=== PATIENT | male | born 1960 | race Caucasian/White ===

== ENCOUNTER 2019-02-17 22:21 | Inpatient (IN) ==
[2019-02-17] MEDS ORDERED: ASPIRIN PO ONE (22:34)
[2019-02-17] MEDS ORDERED: ASPIRIN PR ONE (22:34)
[2019-02-17] MEDS ORDERED: ASPIRIN ONE (22:43)
[2019-02-17 23:12] LABS: BASO# 0.08 X1000 (0.0-0.2); BASO% 0.9 % (0.0-0.8); EOS# 0.51 X1000 (0.0-0.7); EOS% 5.6 % (0.0-10.0); HEMATOCRIT 42.1 % (42.0-52.0); HEMOGLOBIN 13.7 g/dL (14.0-18.0); LYMPH# 2.36 X1000 (1.2-3.4); LYMPH% 26.1 % (20.5-51.1); MCH 29.8 PG (27-31); MCHC 32.5 g/dL (33-37); MCV 91.5 FL (81-99); MONO# 0.72 X1000 (0.11-0.59); MPV 10.2 FL (7.4-10.4); NEUT# 5.37 X1000 (1.4-6.5); NEUT% 59.4 % (42.2-75.2); PLT 307 X1000 (130-400); RDW 12.6 % (11.5-14.5); WBC 9.04 X1000 (4.8-10.8)
[2019-02-17] MEDS ORDERED: NS 1,000 ML IV ONE (23:13)
[2019-02-17] MEDS ORDERED: NITROGLYCERIN ONE (23:18)
[2019-02-17 23:19] LABS: PROTIME 13.3 Seconds (11.0-16.0)
[2019-02-17 23:20] LABS: PTT 30.4 Seconds (22.3-41.8)
[2019-02-17] MEDS ORDERED: NITROGLYCERIN SL ONE (23:25)
[2019-02-17 23:39] LABS: AGAP 13; ALB/GLOB RATIO 1.6; ALBUMIN 4.7 g/dL (3.5-5.0); ALKALINE PHOSPHATASE 94 U/L (32-122); BUN 17 mg/dL (8-22); CALCIUM 8.8 mg/dL (8.8-10.2); CHLORIDE 101 mmol/L (98-107); COSMO 280; CREATININE 1.1 mg/dL (0.7-1.2); ESTIMATED GFR > 60; GLUCOSE 88 mg/dL (70-104); GOT 31 U/L (10-34); GPT 20 U/L (10-44); POTASSIUM 3.9 mmol/L (3.5-5.1); SODIUM 140 mmol/L (136-145); TCO2 26 mmol/L (25-35); TOTAL BILIRUBIN 0.34 mg/dL (0.20-1.00); TOTAL PROTEIN 7.6 g/dL (6.3-8.3)
[2019-02-17 23:44] LABS: CK PROFILE 367 U/L (24-204)
--- NOTE | 2019-02-17 23:47 | EKG Report ---
Test Performed on : 02/17/2019 10:29:31 PM Test Reason : cp Blood Pressure : / mmHG Vent. Rate : 081 BPM Atrial Rate : 081 BPM P-R Int : 178 ms QRS Dur : 098 ms QT Int : 396 ms P-R-T Axes : 046 -43 036 degrees QTc Int : 460 ms Normal sinus rhythm. Left axis deviation Pulmonary disease pattern Abnormal ECG No previous ECGs available Unconfirmed Result
[2019-02-18 00:14] LABS: CK INDEX 1.5 (0.0-2.5); CK-MB 5.44 ng/mL (0.0-5.0)
[2019-02-18] MEDS ORDERED: MORPHINE IV ONE ×2 (00:15→11:36)
[2019-02-18] MEDS ORDERED: ZOFRAN IV ONE (00:38)
--- NOTE | 2019-02-18 01:38 | EKG Report ---
Test Performed on : 02/18/2019 00:55:14 AM Test Reason : chest pain Blood Pressure : / mmHG Vent. Rate : 061 BPM Atrial Rate : 061 BPM P-R Int : 198 ms QRS Dur : 090 ms QT Int : 442 ms P-R-T Axes : 032 -32 -04 degrees QTc Int : 444 ms Normal sinus rhythm. Left axis deviation Abnormal ECG When compared with ECG of 17-FEB-2019 22:29, (Unconfirmed) Non-specific change in ST segment in Inferior leads Inverted T waves have replaced nonspecific T wave abnormality in Inferior leads Unconfirmed Result
[2019-02-18 02:21] LABS: CK INDEX 1.5 (0.0-2.5); CK-MB 4.38 ng/mL (0.0-5.0)
--- NOTE | 2019-02-18 02:45 | PROVIDER DOCUMENTATION ---
This chart was entered by Glenn Call Scribe, acting as scribe for Abram Maier DO. HPI-Chest Pain - General Chief Complaint: Chest Pain Stated Complaint: CHEST PAIN Time Seen by Provider: 02/17/19 22:51 Source: patient Allergies/Adverse Reactions: Patient Allergies Allergy/AdvReac Type Severity Reaction Status Date / Time No Known Allergies Allergy Verified 02/17/19 22:57 Home Medications: Home Medication List Medication Instructions Recorded Confirmed Last Taken Type ATORVAstatin [Lipitor] 40 mg PO DAILY 02/17/19 02/17/19 Unknown History Gabapentin 200 mg PO DAILY 02/17/19 02/17/19 Unknown History Omeprazole [Prilosec] 20 mg PO DAILY 02/17/19 02/17/19 Unknown History - History of Present Illness-CP Nature of Presenting Problem: 58 yom presents to the ed with c/o Chest pains . pt stated onset chest pains stated 2 hours ago. pt states " had real bad chest pains that radiates to LT arm, neck, jaw and made my fingers numb." pt stated " starting to feel dizzy and vomited once." pt states " feels like someone is standing on my chest." pt states " felt like i was going to pass out at one point." Location: reports: substernal Chest Pain Radiation: reports: jaw (LT), arms (LT with fingers going numb), neck (LT) Quality of Pain: reports: aching Severity in ED: mild Onset/Duration: 1-3 hours ago Timing: still present Context/Activities at Onset: reports: none Modifying Factors: improves with: nothing Associated Symptoms: reports: dizziness, nausea, vomiting. denies: abdominal pain, fever/chills, rash, shortness of breath Nitro Today/Relief: no nitro taken today Aspirin Treatment Today: provided by ED Prior Chest Pain/Cardiac Workup: reports: no prior chest pain Similar Symptoms Previously?: No Recently Seen Here or By Another Healthcare Provider: No Review of Systems - Adult - REVIEW OF SYSTEMS - ADULT Constitutional: denies: chills, fever Eyes: reports: no symptoms reported Ears, Nose, Mouth & Throat: reports: no symptoms reported Cardiovascular: reports: see HPI, chest pain. denies: heart murmur, irregular heart rate Respiratory: denies: shortness of breath, wheezing Gastrointestinal: reports: see HPI, nausea, vomiting. denies: abdominal pain, constipation, diarrhea Genitourinary: reports: no symptoms reported Musculoskeletal: reports: see HPI, neck pain. denies: back pain, joint pain Integumentary: reports: no symptoms reported Neurological: reports: see HPI, dizziness/vertigo, numbness. denies: headach e/migraines, slurred speech, syncope Psychiatric: reports: no symptoms reported Endocrine: reports: no symptoms reported Hematologic/Lymphatic: reports: no symptoms reported Allergic/Immunologic: reports: no symptoms reported All Other Systems: Reviewed and Negative Past History - Adult - PAST MEDICAL HISTORY-ADULT Review of Records: reports: Old Records Reviewed, Nursing Assessment Review, Medications Reviewed, Social history reviewed & non-contributory. Major Childhood Illnesses: reports: denies history Cardiovascular: reports: denies history Respiratory: reports: denies history Gastrointestinal: reports: denies history Obstetrical/Gynecological: reports: denies history Genitourinary: reports: denies history Musculoskeletal: reports: denies history Neurological: reports: denies history Endocrine/Immune: reports: denies history Other Conditions: reports: denies history - PRIOR SURGERIES/PROCEDURES Surgical/Procedure History: reports: back/neck (back) - IMMUNIZATION STATUS Childhood Immunizations: See Nurse Assessment Flu Vaccine: See Nurse Assessment - FAMILY HISTORY Family History: reviewed, not pertinent - SOCIAL HISTORY Smoking: cigarettes (few a week), less than 1 pack/day Living Situation: alone Physical Exam-General - PHYSICAL EXAM-ADULT Initial Vital Signs Reviewed: Yes - CONSTITUTIONAL General Appearance: appears well, alert, mild distress. negative: lethargic, slow to respond - EYES Eyes: PERRL/EOMI - HEAD, EARS, NOSE, MOUTH & THROAT HENMT: moist mucous membranes, normal ENT inspection, TMs normal - NECK Neck: non-tender, full range of motion, supple, normal inspection - RESPIRATORY Respiratory: chest non-tender, lungs clear, normal breath sounds, no pleuratic chest pain, no respiratory distress, no accessory muscle use - CARDIOVASCULAR Cardiovascular: normal peripheral pulses, regular rate, rhythm, no edema, no gallop, no murmur - GASTROINTESTINAL (ABDOMEN) Abdominal Exam: normal bowel sounds, non tender, soft, no organomegaly, no pulsatile mass - GENITOURINARY Male Genitalia: deferred Rectal Exam: deferred Hemoccult Exam: deferred - MUSCULOSKELETAL Back Exam: normal inspection, no CVA tenderness Extremity: normal range of motion, normal gait - SKIN Integumentary: normal color, normal turgor, warm/dry - NEUROLOGIC Neurologic: grossly normal, no motor/sensory deficits - PSYCHIATRIC Psych/Mental Status: normal mood/affect, normal thought content, normal thought process, oriented x 3 - HEART Score HEART Score: History: Highly Suspicious HEART Score: ECG: Normal HEART Score: Age: 45-65 Years HEART Score: Risk Factors for Atherosclerotic Disease: 1 or 2 Risk Factors HEART Score: Troponin: < or = Normal Limit Total HEART Score:: 4 Progress - PLAN OF CARE/RESULTS Progress/Plan/Lab Results: Vital Signs - 8 hr 02/17/19 22:21 02/17/19 22:59 02/17/19 23:00 Temperature 97.9 F Pulse Rate 74 77 78 Respiratory Rate 15 23 23 Blood Pressure 124/74 108/72 O2 Sat by Pulse Oximetry 100 98 95 02/17/19 23:01 02/17/19 23:15 02/17/19 23:29 Temperature Pulse Rate 79 68 Respiratory Rate 19 19 15 Blood Pressure 117/70 96/57 O2 Sat by Pulse Oximetry 96 95 95 02/17/19 23:31 02/17/19 23:44 02/17/19 23:46 Temperature Pulse Rate 71 75 58 L Respiratory Rate 15 22 16 Blood Pressure 89/67 O2 Sat by Pulse Oximetry 94 L 96 98 02/17/19 23:51 02/18/19 00:00 02/18/19 00:01 Temperature Pulse Rate 73 70 71 Respiratory Rate 21 17 16 Blood Pressure 106/61 98/61 O2 Sat by Pulse Oximetry 97 97 95 02/18/19 00:14 02/18/19 00:16 02/18/19 00:29 Temperature Pulse Rate 63 82 68 Respiratory Rate 15 18 17 Blood Pressure 97/55 103/62 O2 Sat by Pulse Oximetry 96 98 98 02/18/19 00:31 02/18/19 00:44 02/18/19 00:46 Temperature Pulse Rate 70 75 70 Respiratory Rate 17 18 16 Blood Pressure 115/77 O2 Sat by Pulse Oximetry 98 98 96 02/18/19 01:00 Temperature Pulse Rate 71 Respiratory Rate 17 Blood Pressure O2 Sat by Pulse Oximetry 95 Laboratory Results - last 24 hr 02/17/19 02/17/19 02/17/19 23:01 23:01 23:01 WBC 9.04 RBC 4.60 L Hgb 13.7 L Hct 42.1 MCV 91.5 MCH 29.8 MCHC 32.5 L RDW Std Deviation 12.6 Plt Count 307 MPV 10.2 Immature Gran % (Auto) 0.0 Neut % (Auto) 59.4 Lymph % (Auto) 26.1 [place] % (Auto) 8.0 Eos % (Auto) 5.6 Baso % (Auto) 0.9 H Immature Gran # (Auto) 0.00 Neut # (Auto) 5.37 Lymph # (Auto) 2.36 [place] # (Auto) 0.72 H Eos # (Auto) 0.51 Baso # (Auto) 0.08 PT INR PTT (Actin FS) Sodium 140 Potassium 3.9 Chloride 101 Carbon Dioxide 26 Anion Gap 13 BUN 17 Creatinine 1.1 Estimated GFR/1.73 m2 > 60 BUN/Creatinine Ratio 15 Glucose 88 Calculated Osmolality 280 Calcium 8.8 Total Bilirubin 0.34 AST 31 ALT 20 Alkaline Phosphatase 94 Creatine Kinase 367 H Creatine Kinase Index 1.5 CK-MB (CK-2) 5.44 H Troponin T Amp-H-Kdlgiafnfsq Pept < 5 L Total Protein 7.6 Albumin 4.7 Globulin 2.9 Albumin/Globulin Ratio 1.6 02/17/19 02/17/19 02/18/19 23:01 23:01 00:53 WBC RBC Hgb Hct MCV MCH MCHC RDW Std Deviation Plt Count MPV Immature Gran % (Auto) Neut % (Auto) Lymph % (Auto) [place] % (Auto) Eos % (Auto) Baso % (Auto) Immature Gran # (Auto) Neut # (Auto) Lymph # (Auto) [place] # (Auto) Eos # (Auto) Baso # (Auto) PT 13.3 INR 1.00 PTT (Actin FS) 30.4 Sodium Potassium Chloride Carbon Dioxide Anion Gap BUN Creatinine Estimated GFR/1.73 m2 BUN/Creatinine Ratio Glucose Calculated Osmolality Calcium Total Bilirubin AST ALT Alkaline Phosphatase Creatine Kinase 293 H Creatine Kinase Index 1.5 CK-MB (CK-2) 4.38 Troponin T < 0.010 Xtz-P-Scawgrdnfbr Pept Total Protein Albumin Globulin Albumin/Globulin Ratio 02/18/19 00:53 WBC RBC Hgb Hct MCV MCH MCHC RDW Std Deviation Plt Count MPV Immature Gran % (Auto) Neut % (Auto) Lymph % (Auto) [place] % (Auto) Eos % (Auto) Baso % (Auto) Immature Gran # (Auto) Neut # (Auto) Lymph # (Auto) [place] # (Auto) Eos # (Auto) Baso # (Auto) PT INR PTT (Actin FS) Sodium Potassium Chloride Carbon Dioxide Anion Gap BUN Creatinine Estimated GFR/1.73 m2 BUN/Creatinine Ratio Glucose Calculated Osmolality Calcium Total Bilirubin AST ALT Alkaline Phosphatase Creatine Kinase Creatine Kinase Index CK-MB (CK-2) Troponin T < 0.010 Kft-U-Pjohvhfiili Pept Total Protein Albumin Globulin Albumin/Globulin Ratio Orders Category Date Time Status Cardiac Monitoring DIRECTED Care 02/17/19 22:35 Active Oxygen Therapy- ED Nursing DIRECTED Care 02/17/19 22:35 Active Saline Loc NOW Care 02/17/19 22:35 Active CHEST-2 VIEWS [RAD] Stat Exams 02/17/19 22:35 Taken CBC WITH ELECTRONIC DIFF [HEME] Stat Lab 02/17/19 23:01 Completed CK PROFILE [SP CHEM] Stat Lab 02/17/19 23:01 Completed CK PROFILE [SP CHEM] Stat Lab 02/18/19 00:53 Completed COMPREHENSIVE METABOLIC PANEL [CHEM] Stat Lab 02/17/19 23:01 Completed PRO B-NATRIURETIC PEPTIDE Stat Lab 02/17/19 23:01 Completed PROTIME WITH INR [COAG] Stat Lab 02/17/19 23:01 Completed PTT [COAG] Stat Lab 02/17/19 23:01 Completed TROPONIN T Stat Lab 02/17/19 23:01 Completed TROPONIN T Stat Lab 02/18/19 00:53 Completed 0.9% Sodium Chloride Inj [Ns] 1,000 ml Med 02/17/19 23:13 Discontinued IV 999 mls/hr Aspirin Med 02/17/19 22:34 Discontinued 300 mg MI NOW ONE Aspirin Med 02/17/19 22:43 Discontinued 325 mg .ROUTE .STK-MED ONE Aspirin Med 02/17/19 22:34 Discontinued 325 mg PO NOW ONE Morphine Med 02/18/19 00:15 Discontinued 4 mg IV NOW ONE Nitroglycerin Sl [Nitroglycerin] Med 02/17/19 23:18 Discontinued 0.4 mg .ROUTE .STK-MED ONE Nitroglycerin Sl [Nitroglycerin] Med 02/17/19 23:25 Discontinued 0.4 mg SL NOW ONE Ondansetron [Zofran] Med 02/18/19 00:38 Discontinued 4 mg IV NOW ONE CP/SOB/Palp >45 yrs of Age Stat Oth 02/17/19 22:34 Ordered EKG [EKG] Stat Ther 02/17/19 22:35 Draft EKG [EKG] Stat Ther 02/18/19 00:19 Ordered EKG [EKG] Stat Ther 02/18/19 00:47 Draft Result Diagrams: 02/17/19 23:01 02/17/19 23:01 - REASSESSMENT Reassessment #1 Time Reassessed: 01:09 Status: unchanged - EKG 1 Time of EKG reading by physician:: 22:29 EKG Read and Signed by:: Abram Maier EKG Interpretation (*Must complete 3 of following elements*): Abnormal Rate: 81 Rhythm: NSR [place]: left (left axis deviation) QRS: normal [place] Interval: normal ST Wave: normal Comments: Pulmonary disease pattern 2 Time of EKG reading by physician:: 00:55 EKG Read and Signed by:: Abram Maier (no change ) EKG Interpretation (*Must complete 3 of following elements*): Abnormal Rate: 61 Rhythm: NSR [place]: left (Left axis deviation) QRS: normal [place] Interval: normal ST Wave: normal - XRAY 1 XRAY Study: Chest (no infiltrates or masses. Heart shadow is normal. diaphram is normal) - CONSULTS/PCP/HOSPITALIST Notification #1 *Consult/PCP/Hospitalist*: Dr Prabhakar Time Discussed: 02:44 Consult Disposition: Will see in ED Departure - Departure Date of Disposition Decision: 02/17/19 Time of Disposition Decision: 02:45 DIAGNOSIS: Chest pain Disposition: ADMITTED INPATIENT 09 Certified Medical Emergency: Emergent Condition: Stable Referrals and Follow-Ups: None,PCP [Primary Care Provider] - - Critical Care Note This patient required my direct & personal management of CC.: No Attestation - Physician/ JUAN Attestation Patient care was provided by Advanced Practice Provider:: No The physician spent face to face time with patient:: Yes Advanced Practice Provider documentation review:: Supervising physician onsite and consulted in the evaluation and care of this patient. The physician did have a face to face encounter with the patient. This chart was documented by the indicated scribe, (Glenn Call, Scribe) and accurately reflects the services I performed and decisions made by me, Abram Maier DO, as attested by the provider's signature.
[2019-02-18] MEDS: NS 1,000 ML IV SCH ×2 (03:00→17:03)
[2019-02-18] MEDS ORDERED: NORCO-7.5 PO PRN (03:06)
[2019-02-18] MEDS: NITROGLYCERIN TOP PRN ×2 (06:14→11:47)
--- NOTE | 2019-02-18 07:36 | HISTORY AND PHYSICAL ---
CHIEF COMPLAINT: Left sided chest pain noted prior to admission. HISTORY OF PRESENT ILLNESS: Mr. Gamaliel Oviedo is a 58-year-old male who has a history of low back pain as well as hyperlipidemia and developed left-sided chest pain about p.m. on 02/17/2019. He describes the pain as sharp, constant, on a scale of 0 to 10, 9/10, improved with morphine. No known aggravating factors. The pain radiates to his left upper extremity. He has had associated diaphoresis as well as shortness of breath and also palpitations. The patient was seen and evaluated in the ED. Initial troponin is less than 0.010. EKG shows normal sinus rhythm with nonspecific changes in ST segments in the inferior leads. The patient will now be admitted to the floor for further management. PAST MEDICAL HISTORY: Low back pain as well as hyperlipidemia. PAST SURGICAL HISTORY: He has had surgery for fracture involving the left forearm. SOCIAL HISTORY: No cigarette smoking. No alcohol or drug use. FAMILY HISTORY: Unremarkable. MEDICATIONS: His medications include the followin. Atorvastatin 40 mg p.o. daily. 2. Gabapentin 200 mg p.o. daily. 3. Omeprazole 20 mg p.o. once a day. ALLERGIES: Patient is allergic to Augmentin. REVIEW OF SYSTEMS: General: No fevers. 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 Eyes: Uses glasses. ENT: No sinus problems or hearing loss. Cardiovascular: See history of present illness. Respiratory: No cough. GI: Has nausea and vomiting. No diarrhea. No abdominal pain. : No dysuria. Musculoskeletal: Has joint pain as well as back pain. Dermatology: No skin lesions. Hematology: No bleeding problems. Endocrinology: No thyroid or diabetes. Psychiatric: No anxiety or depression. Allergy/Immunology: Patient does have symptoms suggestive of allergic rhinitis. PHYSICAL EXAMINATION: VITAL SIGNS: Temperature 97.7 degrees, pulse 54, respiratory rate 18, blood pressure 104/64, oxygen saturation is 97%. HEENT: Patient is atraumatic, normocephalic. He is anicteric. Extraocular movements intact. Pupils are equal and poorly reactive to light. No oral lesions noted. NECK: No lymphadenopathy or thyromegaly. CARDIOVASCULAR: S1, S2. No gallops, rubs, or murmurs. RESPIRATORY SYSTEM: Has evidence of good air entry bilaterally. ABDOMEN: Soft, nontender. No masses felt. EXTREMITIES: No evidence of significant edema. CENTRAL NERVOUS SYSTEM: No obvious focal deficit noted. LABORATORY DATA: WBC is 9.04, hematocrit is 42.1 with a platelet count of 307,000. INR is 1.0. Sodium is 140, potassium 3.9, chloride is 101, bicarb 26, BUN is 17, creatinine is 1.1. CPK is 367/293. Troponin is less than 0.010 x 2 sets. ProBNP is less than 5. D-dimer is less than 0.27. ASSESSMENT AND PLAN: 1. Chest pain, rule out acute coronary syndrome. Will place patient on telemetry. Follow up on serial cardiac enzymes. Maintain patient on aspirin, beta julio, as well as nitroglycerin. Check lipid panel. Maintain patient on statin. Obtain 2D echo and consult with Cardiology. 2. Hyperlipidemia. Continue statin. 3. Chronic low back pain. Continue analgesics. 4. Deep vein thrombosis prophylaxis. Lovenox. 5. Gastrointestinal prophylaxis. Proton pump inhibitor. cc: Paul Prabhakar MD MTDD
[2019-02-18 07:41] LABS: CK INDEX 1.5 (0.0-2.5); CK-MB 3.95 ng/mL (0.0-5.0)
--- NOTE | 2019-02-18 07:53 | Diag Imaging Result Doc PS360 ---
CHEST-2 VIEWS - 02/17/2019 INDICATION: cp COMPARISON: None FINDINGS: The lungs are normally expanded and clear. Heart size and mediastinal contours are normal. No pneumothorax or pleural effusion. IMPRESSION: Negative exam. Electronically signed by James Bolivar 02/18/2019 7:51 AM
[2019-02-18] MEDS: LIPITOR PO SCH (08:28)
[2019-02-18] MEDS: NEURONTIN PO SCH (08:28)
[2019-02-18] MEDS: COREG PO SCH ×2 (08:29→21:24)
[2019-02-18] MEDS: NORCO-7.5 PO PRN ×3 (08:29→23:48)
[2019-02-18] MEDS: ASPIRIN PO SCH (08:29)
[2019-02-18] MEDS: PRILOSEC PO SCH (08:31)
[2019-02-18] MEDS: ZOFRAN IV PRN ×3 (08:40→21:26)
[2019-02-18] MEDS ORDERED: LIPITOR PO SCH (09:00)
[2019-02-18] MEDS ORDERED: ASPIRIN PO ONE (11:37)
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
[2019-02-18 15:14] LABS: CK INDEX 1.5 (0.0-2.5); CK-MB 3.99 ng/mL (0.0-5.0)
--- NOTE | 2019-02-18 15:21 | EKG Report ---
Test Performed on : 02/18/2019 11:27:53 AM Test Reason : chest pain Blood Pressure : / mmHG Vent. Rate : 055 BPM Atrial Rate : 055 BPM P-R Int : 176 ms QRS Dur : 102 ms QT Int : 444 ms P-R-T Axes : 033 -37 -02 degrees QTc Int : 424 ms Sinus bradycardia. Left axis deviation Abnormal ECG When compared with ECG of 18-FEB-2019 11:27, (Unconfirmed) No significant change was found Unconfirmed Result
--- NOTE | 2019-02-18 16:03 | ECHO REPORT ---
ORDER DATE: 02/18/2019 ECHOCARDIOGRAPHIC MEASUREMENTS: 1. Interventricular septum 1.2. 2. Left ventricular posterior wall 1.2. 3. Diastolic diameter 4.8. 4. Left ventricular systolic diameter 2.5. 5. Left atrium 3.8. 6. Aorta 3.3. 7. Right ventricle 4. SUMMARY: 1. Normal left ventricular cavity size. Estimated ejection fraction of 60 to 65 percent. 2. Aortic valve leaflets are trileaflet. 3. Mitral valve was normal. 4. Tricuspid valve was normal. 5. Pulmonic valve was normal. 6. By Doppler studies there is no aortic stenosis or regurgitation. 7. There is trace to mild tricuspid regurgitation. 8. Peak velocity across the tricuspid valve was 2.5 m/sec. 9. Pulmonary artery systolic pressure of 35 mmHg. 10. Right ventricle was mildly dilated with preserved right ventricular systolic function. 11. There is mild mitral regurgitation. 12. There is no pericardial effusion or obvious intracardiac mass or thrombus seen. cc: MD Paul Lara MD
--- NOTE | 2019-02-18 16:56 | EKG Report ---
Test Performed on : 02/18/2019 4:18:30 PM Test Reason : chest pain Blood Pressure : / mmHG Vent. Rate : 053 BPM Atrial Rate : 053 BPM P-R Int : 180 ms QRS Dur : 100 ms QT Int : 436 ms P-R-T Axes : 047 -30 011 degrees QTc Int : 409 ms Sinus bradycardia. Left axis deviation Abnormal ECG When compared with ECG of 18-FEB-2019 11:27, (Unconfirmed) No significant change was found Unconfirmed Result
--- NOTE | 2019-02-18 17:00 | CARDIOLOGY CONSULTATION ---
DATE: 02/18/2019 HISTORY OF PRESENT ILLNESS: Mr. Oviedo is a 58-year-old gentleman with a history of hyperlipidemia, has developed left-sided chest pain on 02/17/2019. Describes it as constant pressure-like sensation, which was severe, which lasted for a couple of hours. Symptoms were radiating to the left upper extremity, associated with diaphoresis and shortness of breath. The patient was seen in the emergency room. His electrocardiogram revealed normal sinus rhythm, leftward axis. There were no ST-T changes to suggest ischemia or infarction. First set of cardiac enzymes were negative. The patient was subsequently admitted. Over the course of his hospitalization he was doing well. He was given nitroglycerin and subsequently morphine which relieved his symptoms. Today at about 11 o'clock while he was having a wash and shaving he developed severe retrosternal chest discomfort, again radiating to the jaw and down the arms, associated with tingling in his fingers. This was associated with shortness of breath as well. He has been having mild episodes of ongoing chest discomfort since his admission as well. He had 3 sets of cardiac enzymes which were all negative. His electrocardiograms were repeated which revealed no acute ST elevations. There was nonspecific T-wave changes noted in lead 3 and AVF which was not specific. His chest x-ray was unremarkable. His D-dimer levels were normal. He does not have any significant previous cardiac history. There is no family history of coronary artery disease. About 3 days back he had a minor respiratory tract infection which lasted for a day. REVIEW OF SYSTEMS: A 14 point review of system was done. GI System: There is no history of nausea, vomiting, diarrhea. There is no history of hematemesis or melena. Central nervous system: No focal weakness to suggest a CVA or TIA. System: There is no dysuria or hematuria. Respiratory System: There is no history of cough, expectoration, hemoptysis. There is no history of fevers or chills. PAST MEDICAL HISTORY: Hyperlipidemia, gastroesophageal reflux disease. MEDICATIONS: He takes atorvastatin 40, gabapentin, and omeprazole. SOCIAL HISTORY: He does not smoke. There is no history of illicit drug abuse. There is no history of alcohol abuse. PHYSICAL EXAMINATION: Vital Signs: Blood pressure 104/64. Cardiovascular System: Normal jugular venous pressure. There is no thyromegaly. No carotid bruit. First and second heart sounds were heard. There was no S3 gallop. Respiratory System: Normal air entry. There are no crepitations or rhonchi. Abdomen: Soft, nontender. There was no guarding or rigidity. Bowel sounds were heard. Central nervous system: Alert and oriented. Was moving all 4 extremities. Extremities: Examination of extremities revealed no pedal edema. HEENT: Atraumatic, normocephalic. Pupils were equal and reacting to light. LABORATORY EXAMINATION: Revealed 4 sets of cardiac enzymes were negative. Sodium 140, potassium 3.9, BUN 17, creatinine 1.1. CK-MBs were negative. Indicis were normal. AST 31, ALT 40, bilirubin was normal. Hematology: WBC 9.04, hemoglobin 13.7, hematocrit 42, platelet count of 307,000. D-dimer was negative at 0.27. Chest x-ray was unremarkable. ASSESSMENT AND PLAN: 1. Mr. Gamaliel Wong is a 58-year-old gentleman with history of hyperlipidemia, is admitted with severe retrosternal chest discomfort associated with shortness of breath and some diaphoresis with radiation to the neck and down the arms. He has been having chest pains off and on through his hospitalization. However, he had another severe episode of chest discomfort, retrosternal, pressure-like, with radiation to the jaw and down the arm today. His electrocardiograms revealed nonspecific changes in lead 2 and 3 which was not significant. There was no acute ST elevation. Four sets of cardiac enzymes were negative for ischemia. His D-dimers were negative. He has no previous known cardiac history. Given his ongoing chest pain, I recommended that he undergo a left heart catheterization. Risks, benefits, and alternatives were explained. Patient will be set up for left heart catheterization in the morning. He is on aspirin and has been on Lovenox and beta-blockers have been started. Get an echocardiogram to assess cardiac and valvular function. 2. Hyperlipidemia. Continue with his atorvastatin. 3. He takes omeprazole on a p.r.n. basis. I have not made any other changes to his medications. He has also been started on nitroglycerin paste. Thank you for the consult. We will follow hospital course. cc: Russ Espinoza MD
[2019-02-18] MEDS: MORPHINE IV PRN (21:26)
[2019-02-18 23:08] LABS: CK INDEX 1.6 (0.0-2.5); CK-MB 3.44 ng/mL (0.0-5.0)
[2019-02-19] MEDS: MORPHINE IV PRN ×4 (05:58→21:42)
[2019-02-19] MEDS: PRILOSEC PO SCH ×2 (05:58→06:11)
[2019-02-19] MEDS: ZOFRAN IV PRN ×4 (05:58→21:43)
[2019-02-19] MEDS: NS 1,000 ML IV SCH ×2 (06:04→21:36)
[2019-02-19 07:29] LABS: CHOLESTEROL 153 mg/dL (0-200); HDL 50 mg/dL (35-55); LDL 86 mg/dL; TRIGLYCERIDES 86 mg/dL (39-160); VLDL 17 mg/dL
[2019-02-19] MEDS: LOVENOX SUBQ SCH (09:40)
[2019-02-19] MEDS ORDERED: HEPARIN 1000 UNITS/NS 2,000 UNIT/1,000 ML IV.SOLN ONE (11:39)
--- NOTE | 2019-02-19 12:02 | PROGRESS NOTE ---
DATE: 02/19/2019 SUBJECTIVE: Mr. Oviedo has had still some chest pain and some radiation to the left jaw, a little bit of tingling in his left hand. He had discussed with Dr. Espinoza. I think the plan is to do a heart catheterization. OBJECTIVE: Vital Signs: Temperature 98 degrees, pulse 48, respirations 16, blood pressure 117/71. HEENT: Pupils are equal and round. Lungs: Clear in all lung hunt. Cardiovascular: Regular rhythm and rate without murmur or S3. Abdomen: Soft. Skin: Warm and dry. ASSESSMENT AND PLAN: 1. History of hyperlipidemia, retrosternal chest discomfort with radiation to the left jaw, some diaphoresis, radiation down his left arm. D-dimers were negative. There is no acute ST- elevation on electrocardiogram. Electrocardiogram shows nonspecific changes in leads 2 and 3, which do not appear significant. He has no previous cardiac history. The patient is set up for left heart catheterization. 2. Hyperlipidemia. 3. Omeprazole, he takes as needed. REVIEW OF ORDERS: He is on Lipitor 40 mg a day, Coreg 3.125 mg b.i.d., Neurontin 200 mg a day, omeprazole 20 mg daily, aspirin 325 mg a day. He gets morphine p.r.n. for pain. cc: Tonio Au MD
[2019-02-19] MEDS: COREG PO SCH ×2 (12:06→20:13)
--- NOTE | 2019-02-19 12:09 | PROGRESS NOTE ---
DATE: 02/19/2019 SUBJECTIVE: He would like to go home. He needs to get a leg bag. He has remained afebrile. OBJECTIVE: Vital Signs: Temperature 98.0 degrees, pulse 48, respirations 16, blood pressure 117/71. HEENT: Pupils are equal and round. Lungs: Clear in all lung hutn. Cardiovascular: Regular rhythm and rate without murmur or S3. Abdomen: Soft. Skin: Warm and dry. LABORATORY DATA: His CKs have been in the 200s. Troponin has been less than 0.01. Dictator says he will redictate this. cc: Tonio Au MD
[2019-02-19] MEDS: ASPIRIN PO SCH (13:19)
[2019-02-19] MEDS: NEURONTIN PO SCH (13:19)
[2019-02-19] MEDS: LIPITOR PO SCH (13:19)
[2019-02-19] MEDS ORDERED: DILAUDID ONE (13:42)
[2019-02-19] MEDS ORDERED: VERSED ONE (13:42)
--- NOTE | 2019-02-19 17:22 | CARDIAC CATH REPORT ---
PROCEDURE NAME: - INDICATION: Unstable angina. PROCEDURES PERFORMED: 1. Left heart catheterization. 2. Selective coronary angiography. 3. Left ventriculogram. PROCEDURE IN DETAIL: Mr. Oviedo was brought to the catheterization laboratory in fasting state. Informed consent was obtained. Prepped in usual fashion. He was anesthetized over the right radial artery after Tonio's test proved adequate. A 5-Gambian sheath was placed via true Seldinger technique. Radial cocktail was administered. Catheters were introduced, and hemodynamic measurements made in the ascending thoracic aorta. Coronary angiography was performed in multiple views using JL3.5 and JR4 diagnostic catheters. A left heart catheterization and left ventriculogram were performed using the JR4. At conclusion of procedure, all sheaths and catheters were removed. TR band was left inflated at 14 mL of air with good capillary refill. Good hemostasis, 5-10 mL of blood loss, 65 mL of IV contrast. FINDINGS: 1. The left main has minimal distal luminal irregularities. 2. Left anterior descending is normal in the proximal vessel with minor luminal irregularities in the mid and distal vessel. There is a large and normal first diagonal. 3. Circumflex originates from the left main. Minor luminal irregularities are in the proximal vessel with a normal mid and distal vessel. 4. The right coronary artery originates from the right coronary cusp. It is a normal proximal vessel, minor luminal irregularities in the mid vessel with a normal distal vessel. It is a right dominant system. 5. Ejection fraction was noted to be 65% by LV gram. Aortic blood pressure 132/66 with a mean of 91. Left ventricle pressure 117/4 with an LVEDP of 9. ASSESSMENT: Mr. Oviedo is a 58-year-old gentleman who presented with chest discomfort that was concerning for unstable angina. PLAN: At this point, he has no significant coronary lesions. It appears he is having nonanginal chest discomfort. I would continue with aggressive secondary risk factor reduction for his minor coronary disease. His ejection fraction appears normal. cc: Felix Neumann MD
[2019-02-20] MEDS: PRILOSEC PO SCH (06:09)
[2019-02-20 07:48] VITALS: BP 119/63
[2019-02-20] MEDS: MORPHINE IV PRN (09:01)
[2019-02-20] MEDS: ZOFRAN IV PRN (09:01)
[2019-02-20] MEDS: NEURONTIN PO SCH (09:02)
[2019-02-20] MEDS: LIPITOR PO SCH (09:02)
[2019-02-20] MEDS: COREG PO SCH (09:02)
[2019-02-20] MEDS: ASPIRIN PO SCH (09:02)
[2019-02-20] MEDS: LOVENOX SUBQ SCH (09:02)
[2019-02-20] MEDS: NS 1,000 ML IV SCH (09:05)
--- NOTE | 2019-02-20 09:40 | DISCHARGE SUMMARY ---
ADMISSION DATE: 02/18/2019 DISCHARGE DATE: 02/20/2019 HISTORY AND HOSPITAL COURSE: This is a 58-year-old white male who was admitted on 02/18/2019, discharged on 02/20/2019. He came in with left-sided chest pain, midsternal pain and radiated into his left jaw, left arm with paresthesias. He had back pain as well and a history of hyperlipidemia. Does not see a doctor, said he has been real healthy. Developed left-sided chest pain 02/17/2019. Described the pain as sharp and constant. It was a 9/10. Symptoms improved with morphine. Admitted to the hospital. Serial cardiac enzymes and EKG did not show any sign of ischemia. He was put on aspirin, beta julio, and some nitroglycerin. He wanted to pursue a coronary angiogram which was performed, and he had basically normal coronaries, no significant coronary artery disease. Good left ventricular function. [place] he could be discharged home and encouraged to him to get a primary care physician. DISCHARGE MEDICATIONS: We will put him on aspirin 81 mg a day, Lipitor 40 mg a day, and he takes gabapentin and Prilosec at home as well. cc: Tonio Au MD
== END 2019-02-20 13:49 | disposition home or self-care (01) | DRG 287 ==
LOC: ED 22:21 → SUATTDRO 02-18 05:33 → 3N 02-18 05:33
PROVIDERS: ATTEND Emergency Medicine